=== PATIENT | male | born 1985 | race Hispanic/Latino ===

== ENCOUNTER 2017-12-29 17:36 | Inpatient (IN) | payer MEDICAID ==
--- NOTE | 2017-12-29 18:34 | C.PDOC ---
History Of Present Illness 32 y/o male presents to ED with c/o sob "for few weeks" Patient states he had prior case of pericarditis and was treated, reports recent chest xray showed left side pleural effusion and admits to subjective fever. Patient denies chest pain, palpitations, nausea, vomiting, leg swelling or any other complaints at this time. Time Seen by Provider: 12/29/17 18:31 Chief Complaint (Nursing): Shortness Of Breath History Per: Patient History/Exam Limitations: no limitations Onset/Duration Of Symptoms: Days Current Symptoms Are (Timing): Still Present Past Medical History Reviewed: Historical Data, Nursing Documentation, Vital Signs Vital Signs: Last Vital Signs Temp 98.3 F 12/29/17 20:00 Pulse 118 H 12/29/17 21:08 Resp 18 12/29/17 21:08 BP 122/78 12/29/17 21:08 Pulse Ox 97 12/29/17 21:08 - Medical History PMH: Pericarditis Surgical History: No Surg Hx Family History: States: No Known Family Hx - Social History Hx Alcohol Use: Yes Hx Substance Use: No - Immunization History Hx Tetanus Toxoid Vaccination: Yes Hx Influenza Vaccination: Yes Hx Pneumococcal Vaccination: No Review Of Systems Constitutional: Negative for: Fever, Chills Cardiovascular: Negative for: Chest Pain Respiratory: Positive for: Shortness of Breath. Negative for: Cough Gastrointestinal: Negative for: Nausea, Vomiting Skin: Negative for: Rash Neurological: Negative for: Weakness, Numbness Physical Exam - Physical Exam Appears: Non-toxic, No Acute Distress Skin: Warm, Dry, No Rash Head: Atraumatic, Normacephalic Eye(s): bilateral: Normal Inspection Oral Mucosa: Moist Neck: Normal ROM, Supple Cardiovascular: Rhythm Regular Respiratory: Rales (left base), No Rhonchi, No Wheezing Gastrointestinal/Abdominal: Soft, No Tenderness, No Guarding, No Rebound Extremity: No Pedal Edema, Capillary Refill (<2 seconds) Neurological/Psych: Oriented x3, Normal Speech, Normal Cognition ED Course And Treatment - Laboratory Results Result Diagrams: 12/29/17 18:40 12/29/17 18:40 ECG: Interpreted By Me, Viewed By Me ECG Rhythm: Sinus Tachycardia ECG Interpretation: Normal Interpretation Of ECG: Nonspecific ST/T wave changes. Rate From EC O2 Sat by Pulse Oximetry: 98 (RA) Pulse Ox Interpretation: Normal Medical Decision Making Medical Decision Making: ro pleural effusion/pna/pericarditis/pe-labs imaging pendign noted wbc, cxr shows b/l pleural effusion with b/l patchy infiltrate. dimer elevated. ct shows no pe. case discussed with dr gilmore, covering dr wolfe. 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 accepted by dr gunderson. Disposition - Disposition Disposition: HOSPITALIZED Disposition Time: 22:40 Condition: FAIR Forms: [facility] (Nepali) - Clinical Impression Clinical Impression: Pleural effusion, Pneumonia - Scribe Statement The provider has reviewed the documentation as recorded by the Scribe Elissa Benavides All medical record entries made by the Scribe were at my direction and personally dictated by me. I have reviewed the chart and agree that the record accurately reflects my personal performance of the history, physical exam, medical decision making, and the department course for this patient. I have also personally directed, reviewed, and agree with the discharge instructions and disposition. Decision To Admit - Pt Status Changed To: Hospital Disposition Of: Inpatient - Admit Certification Admit to Inpatient:: After my assessment, the patient will require hospitalization for at least two midnights. This is because of the severity of symptoms shown, intensity of services needed, and/or the medical risk in this patient being treated as an outpatient. - InPatient: Physician Admission Certification: I certify that this patient requires 2 or more midnights of care for the following reason:: failure of outpt - . Bed Request Type: Telemetry Admitting Physician: Adonis Gunderson Jr. Patient Diagnosis: Pleural effusion, Pneumonia
[2017-12-29 18:46] LABS: BASO # 0.1 K/uL (0.0-0.2); BASO % 0.5 % (0.0-2.0); EOS % 0.2 % (0.0-4.0); HEMOGLOBIN 12.5 g/dL (12.0-18.0); LYMPH # 1.8 K/uL (1.0-4.3); LYMPH % 13.8 % (20.0-40.0); MEAN CELL VOLUME 87.9 fL (80.0-94.0); MEAN CORPUSCULAR HGB CONC 34.1 g/dL (33.0-37.0); MONO # 0.9 K/uL (0.0-0.8); MONO % 6.8 % (0.0-10.0); NEUT # 10.1 K/uL (1.8-7.0); NEUT % 78.7 % (50.0-75.0); RBC 4.17 Mil/uL (4.40-5.90); RED CELL DISTRIBUTION WIDTH 13.9 % (11.5-14.5); WHITE BLOOD COUNT 12.8 K/uL (4.8-10.8)
[2017-12-29 18:54] LABS: INR 1.4; PROTHROMBIN TIME 15.4 SECONDS (9.7-12.2)
[2017-12-29 19:03] LABS: ALB/GLOB RATIO 1.1 (1.0-2.1); ALT/SGPT 86 U/L (21-72); AST/SGOT 40 U/L (17-59); BLOOD UREA NITROGEN 13 mg/dL (9-20); CALCIUM 8.9 mg/dl (8.6-10.4); GFR AFRICAN-AMERICAN > 60; GFR NON-AFRICAN AMERICAN > 60
[2017-12-29 19:15] LABS: B-TYPE NATRIURETIC PEPTIDE 430 pg/mL (0-450)
[2017-12-29] MEDS ORDERED: Azithromycin 500 MG in Sodium Chloride 0.9% 250 ML IVPB STA (19:30)
[2017-12-29 19:48] LABS: URINE BILIRUBIN NEGATIVE (NEGATIVE); URINE BLOOD 1+ (NEGATIVE); URINE CLARITY Clear (Clear); URINE COLOR Straw (YELLOW); URINE GLUCOSE (UA) NORMAL (Normal); URINE LEUKOCYTE ESTERASE NEG Leu/uL (Negative); URINE PROTEIN NEGATIVE (NEGATIVE); URINE UROBILINOGEN NORMAL mg/dL (0.2-1.0)
[2017-12-29] MEDS ORDERED: Iodixanol 320 MG/ML 100 ML BOTTLE IV ONE (20:41)
--- NOTE | 2017-12-29 22:42 | CP.PCM.HP ---
History of Present Illness - History of Present Illness History of Present Illness: Medicine Note for Dr. Edwards's Service CC: chest pain, worse with inspiration HPI: This is a 32 year old male who was recently diagnosed with Pericarditis 4 weeks ago. Patient reports that 4 weeks ago he started to have daily fevers with Tmax 103F, chest pain, tightness, pressure that was intermittent, worse with inspiration and was positional, worse when laying down flat, better if upright and leaned forward. He followed up with his PMD and he referred him to see Dr. Ho. Patient had workup done with Dr. Ho who diagnosed him with Pericarditis; started him on daily NSAIDs and Colchine. Patient was also seen by Dr. Hernandez, patient reports all studies were negative. Denied any recent travelling or sick contacts. Admitted to having Scarlet Fever as a child , up to date with all immunizations. Patient reports he was compliant with his medications, taking them daily as instructed. Patient reports 2 days ago he started to have fevers, Tmax 102F, associated with chills, nonproductive cough, nausea, and chest pain with deep inspiration. Patient saw Dr. Ho who instructed the patient come to the ED. Denied shortness of breath, abdominal pain, v/d/c, or urinary symptoms. PMHx: Pericarditis PSHx: Denied Meds: Aleve, Colchine, and Protonix All: NKDA SHx: Denied any tobacco or illicit drug use, drinks 1-2 beers every couple of months FHx: Denied any history of cardiac issues, CVAs, or malignancies Cardio: Dr. Ho Present on Admission - Present on Admission Any Indicators Present on Admission: No Past Patient History - Past Social History Smoking Status: Never Smoked - PSYCHIATRIC Hx Substance Use: No - SURGICAL HISTORY Hx Surgeries: No - ANESTHESIA Hx Anesthesia: No Meds Allergies/Adverse Reactions: Allergies Allergy/AdvReac Type Severity Reaction Status Date / Time No Known Allergies Allergy Verified 12/29/17 17:44 Physical Exam - Constitutional Appears: No Acute Distress - Head Exam Head Exam: NORMAL INSPECTION, NORMOCEPHALIC - Eye Exam Eye Exam: EOMI, Normal appearance, PERRL. absent: Nystagmus, Scleral icterus Pupil Exam: NORMAL ACCOMODATION - ENT Exam ENT Exam: Mucous Membranes Moist, Normal Exam - Neck Exam Neck exam: Positive for: Normal Inspection. Negative for: Lymphadenopathy, Tenderness, Thyromegaly - Respiratory Exam Respiratory Exam: Clear to Auscultation Bilateral, NORMAL BREATHING PATTERN. absent: Decreased Breath Sounds, Rales, Rhonchi, Wheezes - Cardiovascular Exam Cardiovascular Exam: Tachycardia. absent: Diastolic murmur, Irregular Rhythm, Systolic Murmur Additional comments: pain is not reproducible on palpation, no distant heart sounds noted, no pericardial rub noted - GI/Abdominal Exam GI & Abdominal Exam: Normal Bowel Sounds, Soft. absent: Distended, Tenderness - Rectal Exam Rectal Exam: Deferred - Extremities Exam Extremities exam: Positive for: normal inspection, pedal pulses present. Negative for: pedal edema, tenderness - Back Exam Back exam: NORMAL INSPECTION. absent: CVA tenderness (L), CVA tenderness (R), muscle spasm, paraspinal tenderness, rash noted - Neurological Exam Neurological exam: Alert, CN II-XII Intact, Oriented x3 - Psychiatric Exam Psychiatric exam: Normal Affect, Normal Mood - Skin Skin Exam: Dry, Intact, Normal Color, Warm Results - Vital Signs Recent Vital Signs: Last Vital Signs Temp 98.3 F 12/29/17 20:00 Pulse 118 H 12/29/17 21:08 Resp 18 12/29/17 21:08 BP 122/78 12/29/17 21:08 Pulse Ox 98 12/29/17 22:41 - Labs Result Diagrams: 12/29/17 18:40 12/29/17 18:40 Labs: Laboratory Results - last 24 hr 12/29/17 12/29/17 12/29/17 18:40 18:40 18:40 WBC 12.8 H RBC 4.17 L Hgb 12.5 Hct 36.7 MCV 87.9 MCH 30.0 MCHC 34.1 RDW 13.9 Plt Count 273 MPV 10.0 Neut % (Auto) 78.7 H Lymph % (Auto) 13.8 L [place] % (Auto) 6.8 Eos % (Auto) 0.2 Baso % (Auto) 0.5 Neut # (Auto) 10.1 H Lymph # (Auto) 1.8 [place] # (Auto) 0.9 H Eos # (Auto) 0.0 Baso # (Auto) 0.1 PT 15.4 H INR 1.4 APTT 29 D-Dimer, Quantitative Sodium 141 Potassium 4.0 Chloride 98 Carbon Dioxide 27 Anion Gap 20 BUN 13 Creatinine 0.9 Est GFR ( Amer) > 60 Est GFR (Non-Af Amer) > 60 Random Glucose 116 H Calcium 8.9 Total Bilirubin 0.7 AST 40 ALT 86 H Alkaline Phosphatase 127 H Troponin I < 0.0120 NT-Pro-B Natriuret Pep 430 Total Protein 7.6 Albumin 4.0 Globulin 3.6 Albumin/Globulin Ratio 1.1 Urine Color Urine Clarity Urine pH Ur Specific [place] Urine Protein Urine Glucose (UA) Urine Ketones Urine Blood Urine Nitrate Urine Bilirubin Urine Urobilinogen Ur Leukocyte Esterase Urine WBC (Auto) Urine RBC (Auto) 12/29/17 12/29/17 19:33 19:50 WBC RBC Hgb Hct MCV MCH MCHC RDW Plt Count MPV Neut % (Auto) Lymph % (Auto) [place] % (Auto) Eos % (Auto) Baso % (Auto) Neut # (Auto) Lymph # (Auto) [place] # (Auto) Eos # (Auto) Baso # (Auto) PT INR APTT D-Dimer, Quantitative 1859 H Sodium Potassium Chloride Carbon Dioxide Anion Gap BUN Creatinine Est GFR ( Amer) Est GFR (Non-Af Amer) Random Glucose Calcium Total Bilirubin AST ALT Alkaline Phosphatase Troponin I NT-Pro-B Natriuret Pep Total Protein Albumin Globulin Albumin/Globulin Ratio Urine Color Straw Urine Clarity Clear Urine pH 6.0 Ur Specific [place] 1.005 Urine Protein Negative Urine Glucose (UA) Normal Urine Ketones Negative Urine Blood 1+ H Urine Nitrate Negative Urine Bilirubin Negative Urine Urobilinogen Normal Ur Leukocyte Esterase Neg Urine WBC (Auto) < 1 Urine RBC (Auto) 2 Assessment & Plan - Assessment and Plan (Free Text) Plan: Pericarditis Cardiology Consulted - Dr. Ho/ Dr. Griffith - help appreciated - Recently diagnosed x 3-4 weeks, treated outpatient with Dr. Ho; Seen by ID, Dr. Hernandez - workup negative - EKG: sinus tachycardia at 105 - ESR, CRP elevated - Will retrieve records from Dr. Ho/ Dr. Griffith's office - F/U ECHO - Started Motrin Q8H, colchicine daily Bilateral Lower Lobe Pleural Effusions Questionable patchy infiltrates? - CXR: Noted bilateral infiltrates, bilateral effusion - Elevated D- dimer, CTA - negative for PE; noted for mild bilateral pleural effusions, with atelectasis/ infiltrates? Few prominent mediastinal lymph nodes largest 1 x 2.2cm. Biapical pleural thickening/ scarring. No significant pericardial effusions. - F/U procal - if low will DC ABX - Started Rocephin, Azithro, Florastor Transaminitis - Likely 2/2 to tylenol use - Refrain from hepatoxic agents - Will continue to monitor - F/U Hepatitis panel Prophylactic Measures - GI PPX: Protonix, Florastor - DVT PPX: SCDs, Heparin Q8H DW Dr. Edwards, Esha Santos DO, PGY-2
[2017-12-29 23:50] LABS: FREE T4 1.99 ng/dL (0.78-2.19)
[2017-12-30 00:04] LABS: HEPATITIS B SURFACE AG Negative (NEGATIVE)
[2017-12-30 00:10] LABS: HEPATITIS A IGM NEGATIVE (NEGATIVE); HEPATITIS B CORE AB NEGATIVE (NEGATIVE)
[2017-12-30 00:22] LABS: HEPATITIS C ANTIBODY NEGATIVE (NEGATIVE)
[2017-12-30 03:43] LABS: CK-MB 0.25 ng/mL (0.0-3.38)
--- NOTE | 2017-12-30 07:01 | CP.PCM.PN ---
Subjective - Date & Time of Evaluation Date of Evaluation: 12/30/17 Time of Evaluation: 07:50 - Subjective Subjective: PGY [address] Edwards. Patient seen and examined at bedside. Patient had no overnight events. Patient currently states his chest pain is much improved and deep inspirations cause minimal discomfort in chest. Patient denies constipation, abdominal pain, trouble voiding. Patient admits to cyclical fevers/chills. Objective - Vital Signs/Intake and Output Vital Signs (last 24 hours): Temp Pulse Resp BP Pulse Ox 97.5 F L 90 20 104/71 97 12/30/17 06:29 12/30/17 06:29 12/30/17 04:25 12/30/17 06:29 12/30/17 04:25 - Medications Medications: Current Medications Colchicine (Colocrys) 0.6 mg PO DAILY [facility] Heparin Sodium (Porcine) (Heparin) 5,000 units SC Q8 [facility] Last Admin: 12/30/17 06:28 Dose: Not Given Ceftriaxone Sodium 1 gm/ (Sodium Chloride) 100 mls @ 100 mls/hr IVPB DAILY [facility] PRN Reason: Protocol Azithromycin (Zithromax 500mg In Ns Addvantage) 500 mg in 250 mls @ 167 mls/hr IVPB Q24H [facility] PRN Reason: Protocol Ibuprofen (Motrin Tab) 800 mg PO Q8H [facility] Last Admin: 12/30/17 03:24 Dose: 800 mg [id number] Ethyl Esters (Lovaza) 1 gm PO BID [facility] Ondansetron HCl (Zofran Inj) 4 mg IVP Q6H PRN PRN Reason: Nausea/Vomiting Pantoprazole Sodium (Protonix Ec Tab) 20 mg PO DAILY [facility] Pneumococcal Polyvalent Vaccine (Pneumovax 23 Vaccine) 0.5 ml IM .ONCE ONE Stop: 01/02/18 10:01 Saccharomyces Boulardii (Florastor) 250 mg PO Q12 [facility] - Labs Labs: 12/29/17 18:40 12/29/17 18:40 PT 15.4 SECONDS (9.7-12.2) H 12/29/17 18:40 INR 1.4 12/29/17 18:40 APTT 29 SECONDS (21-34) 12/29/17 18:40 - Constitutional Appears: Non-toxic, No Acute Distress - Head Exam Head Exam: ATRAUMATIC, NORMAL INSPECTION, NORMOCEPHALIC - Eye Exam Eye Exam: EOMI, Normal appearance - ENT Exam ENT Exam: Mucous Membranes Moist - Neck Exam Neck Exam: absent: Thyromegaly - Respiratory Exam Respiratory Exam: Clear to Ausculation Bilateral, Rales, NORMAL BREATHING PATTERN. absent: Rhonchi, Wheezes - Cardiovascular Exam Cardiovascular Exam: +S1, +S2. absent: Irregular Rhythm, Murmur - GI/Abdominal Exam GI & Abdominal Exam: Soft, Normal Bowel Sounds. absent: Firm, Guarding, Rigid - Extremities Exam Extremities Exam: Full ROM, Normal Inspection. absent: Calf Tenderness, Pedal Edema - Psychiatric Exam Psychiatric exam: Normal Affect, Normal Mood - Skin Skin Exam: Dry, Intact, Normal Color, Warm Assessment and Plan - Assessment and Plan (Free Text) Assessment: 32 yr male with PMhx of pericarditis and travel to [place] (2013) presents to ED w / chest pain (positional) and difficulty breathing: Pericarditis - Possibly Restrictive - Echo (12/30) - F/u - CT (12/29): No evidence of pulmonary embolism. Small pericardial effusion. Small bilateral pleural effusion with lower lobe compressive atelectasis. - CXR (12/29): Small pleural effusions. Bibasilar airspace disease may represent atelectasis or pneumonia. - EKG: Sinus tachycardia, possible left atrial enlargement, nonspecific T wave abnormality, abnormal ECG - F/u MRI of Chest - F/u Chest decubitis bilateral xray - start Aspirin 325mg Q6, D/C iboprofen - F/u pulmonary recs - Dr. Balbuena - F/u cardio recs - Dr. Ho - ESR, CRP elevated, BNP 430, ROMIx (-) X3 Bilateral Lower Lobe Pleural Effusions Questionable patchy infiltrates? - CXR: Noted bilateral infiltrates, bilateral effusion - Elevated D- dimer, CTA - negative for PE; noted for mild bilateral pleural effusions, with atelectasis/ infiltrates? Few prominent mediastinal lymph nodes largest 1 x 2.2cm. Biapical pleural thickening/ scarring. No significant pericardial effusions. - Started Rocephin, Azithro, Florastor - F/u mycoplasma, legionella Transaminitis - Likely 2/2 to tylenol use - Refrain from hepatoxic agents - Will continue to monitor - hep A, B,C negative Prophylactic Measures - GI PPX: Protonix, Florastor - DVT PPX: SCDs, Heparin Q8H Discussed assessment & plan with Dr. Edwards
[2017-12-30 07:52] LABS: BASO % 0.5 % (0.0-2.0); EOS # 0.1 K/uL (0.0-0.7); EOS % 0.8 % (0.0-4.0); HEMOGLOBIN 11.3 g/dL (12.0-18.0); LYMPH # 1.9 K/uL (1.0-4.3); LYMPH % 19.3 % (20.0-40.0); MEAN CELL VOLUME 89.2 fL (80.0-94.0); MEAN CORPUSCULAR HEMOGLOBIN 30.7 pg (27.0-31.0); MEAN CORPUSCULAR HGB CONC 34.4 g/dL (33.0-37.0); MEAN PLATELET VOLUME 10.3 fL (7.2-11.7); MONO % 9.7 % (0.0-10.0); NEUT # 6.9 K/uL (1.8-7.0); NEUT % 69.7 % (50.0-75.0); RBC 3.69 Mil/uL (4.40-5.90); WHITE BLOOD COUNT 9.9 K/uL (4.8-10.8)
--- NOTE | 2017-12-30 08:15 | RAD ---
Date of service: 12/29/2017 PROCEDURE: CHEST RADIOGRAPH, 1 VIEW HISTORY: chest pain COMPARISON: None available. FINDINGS: LUNGS: The lungs are well inflated. There is bibasilar airspace disease. PLEURA: No pneumothorax. Small pleural effusions. CARDIOVASCULAR: Normal. OSSEOUS STRUCTURES: No significant abnormalities. VISUALIZED UPPER ABDOMEN: Normal. OTHER FINDINGS: None. IMPRESSION: Small pleural effusions. Bibasilar airspace disease may represent atelectasis or pneumonia.
[2017-12-30] MEDS: Saccharomyces Boulardi 250 mg Cap PO SCH ×3 (08:31→22:26)
[2017-12-30 08:46] LABS: ALB/GLOB RATIO 1.1 (1.0-2.1); ALBUMIN 3.5 g/dL (3.5-5.0); ALT/SGPT 76 U/L (21-72); AST/SGOT 42 U/L (17-59); BLOOD UREA NITROGEN 14 mg/dL (9-20); CALCIUM 8.6 mg/dl (8.6-10.4); GFR AFRICAN-AMERICAN > 60; GFR NON-AFRICAN AMERICAN > 60
--- NOTE | 2017-12-30 09:42 | CT ---
Date of service: 12/29/2017 PROCEDURE: CT Chest with contrast (Pulmonary Angiogram) HISTORY: sob elevated dimer COMPARISON: None available. TECHNIQUE: Axial computed tomography images were obtained of the chest in the pulmonary arterial phase of enhancement. Coronal and sagittal reformatted images were created and reviewed. Intravenous contrast dose: 100 mL Visipaque 320 Radiation dose: Total exam DLP = 238.65 mGy-cm. This CT exam was performed using one or more of the following dose reduction techniques: Automated exposure control, adjustment of the mA and/or kV according to patient size, and/or use of iterative reconstruction technique. FINDINGS: PULMONARY ARTERIES: Unremarkable. No pulmonary embolism. AORTA: No acute findings. No thoracic aortic aneurysm. LUNGS: Bilateral lower lobe compressive atelectasis, mild. PLEURAL SPACES: Small bilateral pleural effusion. No pneumothorax. HEART: Normal heart size. Small pericardial effusion. LYMPH NODES: No significant mediastinal or hilar lymphadenopathy. BONES, CHEST WALL: Unremarkable. No fracture or destructive lesion OTHER FINDINGS: Unremarkable. IMPRESSION: No evidence of pulmonary embolism. Small pericardial effusion. Small bilateral pleural effusion with lower lobe compressive atelectasis. The preliminary findings for this examination were reported by [facility] at 10:27 p.m. on 12/29/2017. There is concurrence of this report with the preliminary findings.
--- NOTE | 2017-12-30 10:28 | CP.PCM.CON ---
History of Present Illness - History of Present Illness History of Present Illness: The pt is a 32 year old man with several weeks of fever. pt came to see me and had a small pericardial effusion, no st changes. After a week of nsaids and colchicine, the pericardial effusion was small,er but there were bilateral pleural effusion noted on echo and cxr. pt saw Dr cheatham as an outpatient, and blood cultures were drawn here at , but no record available. W/u for ANBA, RF negative. Pt also had a moderate transaminitis. Pt stopped nsaids, and fever recurred. A biref echo in my offic yesterday demonstrated only a trivial pericardial effusion and normal LV EF and doppler. pt feels better today after antibiotics. ECg shows nsr, no st changes. pt was [id number] to [facility] in the past with pericarditis, a year or two ago, and took only a brief course of nsaids. Review of Systems - Review of Systems All systems: reviewed and no additional remarkable complaints except (cough, and as above) Past Patient History - Past Medical History & Family History Past Medical History?: Yes - Past Social History Smoking Status: Never Smoked - CARDIAC Hx Cardiac Disorders: Yes Other/Comment: Pericarditis - PULMONARY Hx Respiratory Disorders: No - NEUROLOGICAL Hx Neurological Disorder: No - HEENT Hx HEENT Problems: No - RENAL Hx Chronic Kidney Disease: No - ENDOCRINE/METABOLIC Hx Endocrine Disorders: No - HEMATOLOGICAL/ONCOLOGICAL Hx Blood Disorders: No - INTEGUMENTARY Hx Dermatological Problems: No - MUSCULOSKELETAL/RHEUMATOLOGICAL Hx Musculoskeletal Disorders: No Hx Falls: No - GASTROINTESTINAL Hx Gastrointestinal Disorders: No - GENITOURINARY/GYNECOLOGICAL Hx Genitourinary Disorders: No - PSYCHIATRIC Hx Psychophysiologic Disorder: No Hx Substance Use: No - SURGICAL HISTORY Hx Surgeries: No - ANESTHESIA Hx Anesthesia: No Meds Allergies/Adverse Reactions: Allergies Allergy/AdvReac Type Severity Reaction Status Date / Time No Known Allergies Allergy Verified 12/29/17 17:44 - Medications Medications: Current Medications Colchicine (Colocrys) 0.6 mg PO DAILY [facility] Heparin Sodium (Porcine) (Heparin) 5,000 units SC Q8 [facility] Last Admin: 12/30/17 06:28 Dose: Not Given Ceftriaxone Sodium 1 gm/ (Sodium Chloride) 100 mls @ 100 mls/hr IVPB DAILY [facility] PRN Reason: Protocol Azithromycin (Zithromax 500mg In Ns Addvantage) 500 mg in 250 mls @ 167 mls/hr IVPB Q24H [facility] PRN Reason: Protocol Ibuprofen (Motrin Tab) 800 mg PO Q8H [facility] Last Admin: 12/30/17 03:24 Dose: 800 mg Disjx-8-Gvhq Ethyl Esters (Lovaza) 1 gm PO BID [facility] Ondansetron HCl (Zofran Inj) 4 mg IVP Q6H PRN PRN Reason: Nausea/Vomiting Pantoprazole Sodium (Protonix Ec Tab) 20 mg PO DAILY [facility] Pneumococcal Polyvalent Vaccine (Pneumovax 23 Vaccine) 0.5 ml IM .ONCE ONE Stop: 01/02/18 10:01 Saccharomyces Boulardii (Florastor) 250 mg PO Q12 [facility] Last Admin: 12/30/17 08:31 Dose: 250 mg Physical Exam - Constitutional Appears: Well - Head Exam Head Exam: ATRAUMATIC - Eye Exam Eye Exam: EOMI - ENT Exam ENT Exam: Mucous Membranes Moist - Neck Exam Neck exam: Positive for: Full Rom - Respiratory Exam Respiratory Exam: Decreased Breath Sounds - Cardiovascular Exam Cardiovascular Exam: REGULAR RHYTHM - GI/Abdominal Exam GI & Abdominal Exam: Normal Bowel Sounds - Exam External exam: NORMAL EXTERNAL EXAM - Extremities Exam Extremities exam: Positive for: normal inspection - Back Exam Back exam: NORMAL INSPECTION - Neurological Exam Neurological exam: Alert, Normal Gait, Oriented x3, Reflexes Normal - Psychiatric Exam Psychiatric exam: Normal Affect, Normal Mood - Skin Skin Exam: Normal Color Results - Vital Signs Recent Vital Signs: Last Vital Signs Temp 97.8 F 12/30/17 07:20 Pulse 88 12/30/17 08:02 Resp 20 12/30/17 07:20 BP 99/63 L 12/30/17 07:20 Pulse Ox 97 12/30/17 07:20 - Labs Result Diagrams: 12/30/17 07:48 12/30/17 07:48 Labs: Laboratory Results - last 24 hr 12/29/17 12/29/17 12/29/17 18:40 18:40 18:40 WBC 12.8 H RBC 4.17 L Hgb 12.5 Hct 36.7 MCV 87.9 MCH 30.0 MCHC 34.1 RDW 13.9 Plt Count 273 MPV 10.0 Neut % (Auto) 78.7 H Lymph % (Auto) 13.8 L Glenn % (Auto) 6.8 Eos % (Auto) 0.2 Baso % (Auto) 0.5 Neut # (Auto) 10.1 H Lymph # (Auto) 1.8 Glenn # (Auto) 0.9 H Eos # (Auto) 0.0 Baso # (Auto) 0.1 ESR PT 15.4 H INR 1.4 APTT 29 D-Dimer, Quantitative Sodium 141 Potassium 4.0 Chloride 98 Carbon Dioxide 27 Anion Gap 20 BUN 13 Creatinine 0.9 Est GFR ( Amer) > 60 Est GFR (Non-Af Amer) > 60 Random Glucose 116 H Hemoglobin A1c Calcium 8.9 Phosphorus Magnesium Total Bilirubin 0.7 AST 40 ALT 86 H Alkaline Phosphatase 127 H Total Creatine Kinase CK-MB (Mass) Troponin I < 0.0120 C-React Prot High Sens NT-Pro-B Natriuret Pep 430 Total Protein 7.6 Albumin 4.0 Globulin 3.6 Albumin/Globulin Ratio 1.1 Triglycerides Cholesterol LDL Cholesterol Direct HDL Cholesterol Free T4 TSH 3rd Generation Urine Color Urine Clarity Urine pH Ur Specific [place] Urine Protein Urine Glucose (UA) Urine Ketones Urine Blood Urine Nitrate Urine Bilirubin Urine Urobilinogen Ur Leukocyte Esterase Urine WBC (Auto) Urine RBC (Auto) Hepatitis A IgM Ab Hep Bs Antigen Hep B Core IgM Ab Hepatitis C Antibody 12/29/17 12/29/17 12/29/17 19:33 19:50 23:11 WBC RBC Hgb Hct MCV MCH MCHC RDW Plt Count MPV Neut % (Auto) Lymph % (Auto) Glenn % (Auto) Eos % (Auto) Baso % (Auto) Neut # (Auto) Lymph # (Auto) Glenn # (Auto) Eos # (Auto) Baso # (Auto) ESR PT INR APTT D-Dimer, Quantitative 1859 H Sodium Potassium Chloride Carbon Dioxide Anion Gap BUN Creatinine Est GFR ( Amer) Est GFR (Non-Af Amer) Random Glucose Hemoglobin A1c 5.5 Calcium Phosphorus Magnesium Total Bilirubin AST ALT Alkaline Phosphatase Total Creatine Kinase CK-MB (Mass) Troponin I C-React Prot High Sens NT-Pro-B Natriuret Pep Total Protein Albumin Globulin Albumin/Globulin Ratio Triglycerides Cholesterol LDL Cholesterol Direct HDL Cholesterol Free T4 TSH 3rd Generation Urine Color Straw Urine Clarity Clear Urine pH 6.0 Ur Specific [place] 1.005 Urine Protein Negative Urine Glucose (UA) Normal Urine Ketones Negative Urine Blood 1+ H Urine Nitrate Negative Urine Bilirubin Negative Urine Urobilinogen Normal Ur Leukocyte Esterase Neg Urine WBC (Auto) < 1 Urine RBC (Auto) 2 Hepatitis A IgM Ab Hep Bs Antigen Hep B Core IgM Ab Hepatitis C Antibody 12/29/17 12/29/17 12/29/17 23:11 23:11 23:11 WBC RBC Hgb Hct MCV MCH MCHC RDW Plt Count MPV Neut % (Auto) Lymph % (Auto) Glenn % (Auto) Eos % (Auto) Baso % (Auto) Neut # (Auto) Lymph # (Auto) Glenn # (Auto) Eos # (Auto) Baso # (Auto) ESR 72 H PT INR APTT D-Dimer, Quantitative Sodium Potassium Chloride Carbon Dioxide Anion Gap BUN Creatinine Est GFR ( Amer) Est GFR (Non-Af Amer) Random Glucose Hemoglobin A1c Calcium Phosphorus Magnesium Total Bilirubin AST ALT Alkaline Phosphatase Total Creatine Kinase CK-MB (Mass) Troponin I C-React Prot High Sens > 15.00 H NT-Pro-B Natriuret Pep Total Protein Albumin Globulin Albumin/Globulin Ratio Triglycerides Cholesterol LDL Cholesterol Direct HDL Cholesterol Free T4 1.99 TSH 3rd Generation Urine Color Urine Clarity Urine pH Ur Specific [place] Urine Protein Urine Glucose (UA) Urine Ketones Urine Blood Urine Nitrate Urine Bilirubin Urine Urobilinogen Ur Leukocyte Esterase Urine WBC (Auto) Urine RBC (Auto) Hepatitis A IgM Ab Negative Hep Bs Antigen Negative Hep B Core IgM Ab Negative Hepatitis C Antibody Negative 12/30/17 12/30/17 12/30/17 00:11 03:13 07:48 WBC 9.9 RBC 3.69 L Hgb 11.3 L Hct 32.9 L MCV 89.2 MCH 30.7 MCHC 34.4 RDW 14.0 Plt Count 271 MPV 10.3 Neut % (Auto) 69.7 Lymph % (Auto) 19.3 L Glenn % (Auto) 9.7 Eos % (Auto) 0.8 Baso % (Auto) 0.5 Neut # (Auto) 6.9 Lymph # (Auto) 1.9 Glenn # (Auto) 1.0 H Eos # (Auto) 0.1 Baso # (Auto) 0.0 ESR PT INR APTT D-Dimer, Quantitative Sodium Potassium Chloride Carbon Dioxide Anion Gap BUN Creatinine Est GFR ( Amer) Est GFR (Non-Af Amer) Random Glucose Hemoglobin A1c Calcium Phosphorus Magnesium Total Bilirubin AST ALT Alkaline Phosphatase Total Creatine Kinase 52 L CK-MB (Mass) 0.25 Troponin I < 0.0120 C-React Prot High Sens NT-Pro-B Natriuret Pep Total Protein Albumin Globulin Albumin/Globulin Ratio Triglycerides 103 Cholesterol 113 LDL Cholesterol Direct 50 HDL Cholesterol 20 L Free T4 TSH 3rd Generation 1.57 Urine Color Urine Clarity Urine pH Ur Specific [place] Urine Protein Urine Glucose (UA) Urine Ketones Urine Blood Urine Nitrate Urine Bilirubin Urine Urobilinogen Ur Leukocyte Esterase Urine WBC (Auto) Urine RBC (Auto) Hepatitis A IgM Ab Hep Bs Antigen Hep B Core IgM Ab Hepatitis C Antibody 12/30/17 07:48 WBC RBC Hgb Hct MCV MCH MCHC RDW Plt Count MPV Neut % (Auto) Lymph % (Auto) Glenn % (Auto) Eos % (Auto) Baso % (Auto) Neut # (Auto) Lymph # (Auto) Glenn # (Auto) Eos # (Auto) Baso # (Auto) ESR PT INR APTT D-Dimer, Quantitative Sodium 141 Potassium 4.2 Chloride 103 Carbon Dioxide 28 Anion Gap 14 BUN 14 Creatinine 0.9 Est GFR ( Amer) > 60 Est GFR (Non-Af Amer) > 60 Random Glucose 88 Hemoglobin A1c Calcium 8.6 Phosphorus 3.3 Magnesium 2.3 Total Bilirubin 0.5 AST 42 ALT 76 H Alkaline Phosphatase 115 Total Creatine Kinase CK-MB (Mass) Troponin I C-React Prot High Sens NT-Pro-B Natriuret Pep Total Protein 6.5 Albumin 3.5 Globulin 3.1 Albumin/Globulin Ratio 1.1 Triglycerides Cholesterol LDL Cholesterol Direct HDL Cholesterol Free T4 TSH 3rd Generation Urine Color Urine Clarity Urine pH Ur Specific [place] Urine Protein Urine Glucose (UA) Urine Ketones Urine Blood Urine Nitrate Urine Bilirubin Urine Urobilinogen Ur Leukocyte Esterase Urine WBC (Auto) Urine RBC (Auto) Hepatitis A IgM Ab Hep Bs Antigen Hep B Core IgM Ab Hepatitis C Antibody - EKG Data EKG Interpreted by: Myself EKG shows normal: Sinus rhythm Rate: Normal Assessment & Plan - Assessment and Plan (Free Text) Assessment: 1. Trivial pericardial effusion. May stop colchicine 2. Bilateral pleural effusions, atelectasis, FUO. Recommend ID and Pulmonary Eval.
[2017-12-30] MEDS: Omega-3-Acid Ethyl Esters 1 GM Cap PO SCH ×2 (10:56→17:54)
[2017-12-30] MEDS: Pantoprazole 20 mg EC Tab PO SCH (10:56)
[2017-12-30] MEDS ORDERED: Azithromycin 500mg/250ML NS 500 MG/250 ML BAG IVPB SCH (12:00)
--- NOTE | 2017-12-30 12:03 | CARD ---
APPROVED REPORT Date of service: 12/29/2017 EKG Measurement Heart [id number] MD [id number] <Conclusion> Sinus tachycardia Possible Left atrial enlargement Nonspecific T wave abnormality Abnormal ECG
--- NOTE | 2017-12-30 12:03 | CARD ---
APPROVED REPORT Date of service: 12/30/2017 EKG Measurement Heart [id number] <Conclusion> Normal sinus rhythm Nonspecific T wave abnormality Abnormal ECG
[2017-12-30 12:13] LABS: CK-MB 0.26 ng/mL (0.0-3.38)
--- NOTE | 2017-12-30 12:28 | CARD ---
APPROVED REPORT Date of service: 12/30/2017 EKG Measurement Heart [id number] <Conclusion> Normal sinus rhythm T wave abnormality, consider anterior ischemia Abnormal ECG
[2017-12-31 07:18] LABS: BASO % 0.6 % (0.0-2.0); EOS # 0.2 K/uL (0.0-0.7); EOS % 2.7 % (0.0-4.0); HEMOGLOBIN 12.1 g/dL (12.0-18.0); LYMPH # 1.9 K/uL (1.0-4.3); LYMPH % 25.5 % (20.0-40.0); MEAN CELL VOLUME 88.9 fL (80.0-94.0); MEAN CORPUSCULAR HEMOGLOBIN 30.1 pg (27.0-31.0); MEAN CORPUSCULAR HGB CONC 33.9 g/dL (33.0-37.0); MEAN PLATELET VOLUME 9.7 fL (7.2-11.7); MONO # 0.7 K/uL (0.0-0.8); MONO % 8.9 % (0.0-10.0); NEUT # 4.7 K/uL (1.8-7.0); NEUT % 62.3 % (50.0-75.0); NRBC % 0.1 % (0.0-2.0); RBC 4.01 Mil/uL (4.40-5.90); RED CELL DISTRIBUTION WIDTH 13.9 % (11.5-14.5); WHITE BLOOD COUNT 7.6 K/uL (4.8-10.8)
[2017-12-31 08:21] LABS: ALBUMIN 3.6 g/dL (3.5-5.0); ALT/SGPT 88 U/L (21-72); AST/SGOT 55 U/L (17-59); BLOOD UREA NITROGEN 11 mg/dL (9-20); CALCIUM 9.1 mg/dl (8.6-10.4); GFR AFRICAN-AMERICAN > 60; GFR NON-AFRICAN AMERICAN > 60
[2017-12-31 09:11] LABS: LEGIONELLA AG URINE NEGATIVE (NEGATIVE)
[2017-12-31] MEDS: Omega-3-Acid Ethyl Esters 1 GM Cap PO SCH ×2 (09:19→17:15)
[2017-12-31] MEDS: Pantoprazole 20 mg EC Tab PO SCH (09:19)
[2017-12-31] MEDS: Saccharomyces Boulardi 250 mg Cap PO SCH ×2 (09:19→21:27)
--- NOTE | 2017-12-31 09:47 | CP.PCM.CON ---
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 Patient was treated with nonsteroidal anti-inflammatory drug and colchicine. Patient was also seen by infectious disease and states all workup was negative. Patient also complaining off slight cough but denies shortness of breath, denies weight loss, denies night sweats. PMHx: Pericarditis PSHx: Denied Meds: Aleve, Colchine, and Protonix All: NKDA SHx: Denied any tobacco or illicit drug use, drinks 1-2 beers every couple of months FHx: Denied any history of cardiac issues, CVAs, or malignancies Review of Systems - Review of Systems All systems: reviewed and no additional remarkable complaints except (cough and chest pain) Past Patient History - Past Medical History & Family History Past Medical History?: Yes - Past Social History Smoking Status: Never Smoked - CARDIAC Hx Cardiac Disorders: Yes Other/Comment: Pericarditis - PULMONARY Hx Respiratory Disorders: No - NEUROLOGICAL Hx Neurological Disorder: No - HEENT Hx HEENT Problems: No - RENAL Hx Chronic Kidney Disease: No - ENDOCRINE/METABOLIC Hx Endocrine Disorders: No - HEMATOLOGICAL/ONCOLOGICAL Hx Blood Disorders: No - INTEGUMENTARY Hx Dermatological Problems: No - MUSCULOSKELETAL/RHEUMATOLOGICAL Hx Musculoskeletal Disorders: No Hx Falls: No - GASTROINTESTINAL Hx Gastrointestinal Disorders: No - GENITOURINARY/GYNECOLOGICAL Hx Genitourinary Disorders: No - PSYCHIATRIC Hx Psychophysiologic Disorder: No Hx Substance Use: No - SURGICAL HISTORY Hx Surgeries: No - ANESTHESIA Hx Anesthesia: No Meds Allergies/Adverse Reactions: Allergies Allergy/AdvReac Type Severity Reaction Status Date / Time No Known Allergies Allergy Verified 12/29/17 17:44 - Medications Medications: Current Medications Aspirin (Aspirin) 325 mg PO Q6 [facility] Last Admin: 12/31/17 06:21 Dose: 325 mg Heparin Sodium (Porcine) (Heparin) 5,000 units SC Q8 [facility] Last Admin: 12/31/17 06:21 Dose: Not Given Ceftriaxone Sodium 1 gm/ (Sodium Chloride) 100 mls @ 100 mls/hr IVPB DAILY [facility] PRN Reason: Protocol Last Admin: 12/31/17 09:19 Dose: 100 mls/hr Azithromycin (Zithromax 500mg In Ns Addvantage) 500 mg in 250 mls @ 167 mls/hr IVPB Q24H [facility] PRN Reason: Protocol Last Admin: 12/30/17 11:10 Dose: 167 mls/hr Spwlk-9-Inor Ethyl Esters (Lovaza) 1 gm PO BID [facility] Last Admin: 12/31/17 09:19 Dose: 1 gm Ondansetron HCl (Zofran Inj) 4 mg IVP Q6H PRN PRN Reason: Nausea/Vomiting Pantoprazole Sodium (Protonix Ec Tab) 20 mg PO DAILY [facility] Last Admin: 12/31/17 09:19 Dose: 20 mg Pneumococcal Polyvalent Vaccine (Pneumovax 23 Vaccine) 0.5 ml IM .ONCE ONE Stop: 01/02/18 10:01 Saccharomyces Boulardii (Florastor) 250 mg PO Q12 [facility] Last Admin: 12/31/17 09:19 Dose: 250 mg Physical Exam - Head Exam Head Exam: ATRAUMATIC, NORMOCEPHALIC - ENT Exam ENT Exam: Mucous Membranes Moist - Neck Exam Neck exam: Positive for: Normal Inspection - Respiratory Exam Respiratory Exam: Clear to Auscultation Bilateral - Cardiovascular Exam Cardiovascular Exam: REGULAR RHYTHM - GI/Abdominal Exam GI & Abdominal Exam: Normal Bowel Sounds, Soft - Extremities Exam Extremities exam: Positive for: normal inspection Results - Vital Signs Recent Vital Signs: Last Vital Signs Temp 98.1 F 12/31/17 07:20 Pulse 98 H 12/31/17 07:20 Resp 20 12/31/17 07:20 BP 110/70 12/31/17 07:20 Pulse Ox 97 12/31/17 07:20 - Labs Result Diagrams: 12/31/17 06:55 12/31/17 06:55 Labs: Laboratory Results - last 24 hr 12/29/17 12/30/17 12/30/17 23:45 11:37 11:43 WBC RBC Hgb Hct MCV MCH MCHC RDW Plt Count MPV Neut % (Auto) Lymph % (Auto) Bartholomew % (Auto) Eos % (Auto) Baso % (Auto) Neut # (Auto) Lymph # (Auto) Bartholomew # (Auto) Eos # (Auto) Baso # (Auto) Sodium Potassium Chloride Carbon Dioxide Anion Gap BUN Creatinine Est GFR ( Amer) Est GFR (Non-Af Amer) Random Glucose Calcium Phosphorus Magnesium Total Bilirubin AST ALT Alkaline Phosphatase Total Creatine Kinase 53 L CK-MB (Mass) 0.26 Troponin I < 0.0120 Total Protein Albumin Globulin Albumin/Globulin Ratio Procalcitonin 0.19 Rheumatoid Arth Interp Negative Ur L.pneumophila Ag 12/31/17 12/31/17 12/31/17 01:16 06:55 06:55 WBC 7.6 RBC 4.01 L Hgb 12.1 Hct 35.7 MCV 88.9 MCH 30.1 MCHC 33.9 RDW 13.9 Plt Count 307 MPV 9.7 Neut % (Auto) 62.3 Lymph % (Auto) 25.5 Bartholomew % (Auto) 8.9 Eos % (Auto) 2.7 Baso % (Auto) 0.6 Neut # (Auto) 4.7 Lymph # (Auto) 1.9 Bartholomew # (Auto) 0.7 Eos # (Auto) 0.2 Baso # (Auto) 0.0 Sodium 142 Potassium 4.4 Chloride 104 Carbon Dioxide 26 Anion Gap 17 BUN 11 Creatinine 0.8 Est GFR ( Amer) > 60 Est GFR (Non-Af Amer) > 60 Random Glucose 94 Calcium 9.1 Phosphorus 4.7 H Magnesium 2.2 Total Bilirubin 0.4 AST 55 ALT 88 H Alkaline Phosphatase 141 H D Total Creatine Kinase CK-MB (Mass) Troponin I Total Protein 7.2 Albumin 3.6 Globulin 3.6 Albumin/Globulin Ratio 1.0 Procalcitonin Rheumatoid Arth Interp Ur L.pneumophila Ag Negative Assessment & Plan (1) Pleural effusion Assessment and Plan: pleural and pericardial effusion/ pericarditis rule out infectious versus inflammatory etiologyy Consider to repeat the NICK, urine drug screen, HIV, Lyme titers, QuantiFERON Gold test Small pleural effusion not amenable to thoracentesis consider Pleural or pericardial biopsy Short course of steroid Status: Acute (2) Pericarditis Status: Acute
[2017-12-31 10:16] LABS: N MENINGITIS ACY/W135 NEGATIVE (NEGATIVE); N MENINGITIS B/ECOLI K1 NEGATIVE (NEGATIVE); STREP PNEUMONIAE NEGATIVE (NEGATIVE); STREPTOCOCCUS B NEGATIVE (NEGATIVE)
[2017-12-31] MEDS: MethylPREDNISolone 40 mg Vial IV SCH ×3 (12:48→23:27)
[2017-12-31] MEDS: Azithromycin 500 MG in Sodium Chloride 0.9% 250 ML IVPB SCH (13:05)
--- NOTE | 2017-12-31 13:41 | RAD ---
Date of service: 12/31/2017 PROCEDURE: Bilateral decubitus views of the chest HISTORY: pleural effusion vs infectious process COMPARISON: Comparison is made with the previous study dated 11/29/[address] of the chest dated 12/29/2017 TECHNIQUE: Bilateral decubitus views of the chest were obtained. FINDINGS: Again noted are small to moderate bilateral pleural effusions slightly larger on the left. No definite evidence of focal consolidation or infiltrate in the lungs. IMPRESSION: Moderate bilateral pleural effusions.
--- NOTE | 2017-12-31 13:52 | CARD ---
APPROVED REPORT Date of service: 12/30/2017 EXAM: Two-dimensional and M-mode echocardiogram with Doppler and color Doppler. INDICATION Pericarditis Dyspnea Pleural Effusion 2D DIMENSIONS IVSd0.7 (0.7-1.1cm)LVDd4.2 (3.9-5.9cm) PWd0.8 (0.7-1.1cm)LVDs3.0 (2.5-4.0cm) FS (%) 27.0 %LVEF (%)55.0 (>50%) M-Mode DIMENSIONS Left Atrium (MM)3.52 (2.5-4.0cm)IVSd0.89 (0.7-1.1cm) Aortic Root3.08 (2.2-3.7cm)LVDd4.23 (4.0-5.6cm) Aortic Cusp Exc.2.36 (1.5-2.0cm)PWd0.82 (0.7-1.1cm) FS (%) 31 %LVDs2.92 (2.0-3.8cm) LVEF (%)59 (>50%) Mitral Valve MV E Kvihsuir07.4cm/sMV A Itvolvwj63.3cm/sE/A ratio1.8 TDI E/Lateral E'0.0E/Medial E'0.0 Tricuspid Valve TR Peak [id number]/sTR Peak Gr.[id number] <Conclusion> normal size la,lv & ra rv. normal lv wall thickness,wall motion,systolic & diastolic function with lvef of 50-55%. normal aortic,mitral,tv & pv. mild pi,mr & tr with normal pulmonary systolic pressures of 20 mm of hg. small posterior pericardial effusion & large lt pleural effusion seen. normal size aortic root.
--- NOTE | 2017-12-31 15:57 | CP.PCM.PN ---
Subjective - Date & Time of Evaluation Date of Evaluation: 12/31/17 Time of Evaluation: 15:36 - Subjective Subjective: PGY-[address] Edwards's Service. Patient seen and examined at bedside. Per nursing no acute events occurred overnight. Patient reports an improvement in chest pain. He reports it only being a 1/10 in severity today upon exam. He denies any fevers, chills, nausea , vomiting, changes in vision, syncopal episodes, or any other complaints. Objective - Vital Signs/Intake and Output Vital Signs (last 24 hours): Temp Pulse Resp BP Pulse Ox 98.1 F 99 H 20 110/70 97 12/31/17 07:20 12/31/17 07:45 12/31/17 07:20 12/31/17 07:20 12/31/17 07:20 Intake and Output: 12/31/17 12/31/17 06:59 18:59 Intake Total 360 500 Balance 360 500 - Medications Medications: Current Medications Aspirin (Aspirin) 325 mg PO Q6 [facility] Last Admin: 12/31/17 12:48 Dose: 325 mg Heparin Sodium (Porcine) (Heparin) 5,000 units SC Q8 [facility] Last Admin: 12/31/17 13:56 Dose: Not Given Ceftriaxone Sodium 1 gm/ (Sodium Chloride) 100 mls @ 100 mls/hr IVPB DAILY [facility] PRN Reason: Protocol Last Admin: 12/31/17 09:19 Dose: 100 mls/hr Azithromycin 500 mg/ Sodium (Chloride) 250 mls @ 167 mls/hr IVPB Q24H [facility] PRN Reason: Protocol Last Admin: 12/31/17 13:05 Dose: 167 mls/hr Methylprednisolone (Solu-Medrol) 40 mg IV Q6 [facility] Last Admin: 12/31/17 12:48 Dose: 40 mg Yrdko-5-Rbqf Ethyl Esters (Lovaza) 1 gm PO BID [facility] Last Admin: 12/31/17 09:19 Dose: 1 gm Ondansetron HCl (Zofran Inj) 4 mg IVP Q6H PRN PRN Reason: Nausea/Vomiting Pantoprazole Sodium (Protonix Ec Tab) 20 mg PO DAILY [facility] Last Admin: 12/31/17 09:19 Dose: 20 mg Pneumococcal Polyvalent Vaccine (Pneumovax 23 Vaccine) 0.5 ml IM .ONCE ONE Stop: 01/02/18 10:01 Stacy Altamirano (Florastor) 250 mg PO Q12 [facility] Last Admin: 12/31/17 09:19 Dose: 250 mg - Labs Labs: 12/31/17 06:55 12/31/17 06:55 PT 15.4 SECONDS (9.7-12.2) H 12/29/17 18:40 INR 1.4 12/29/17 18:40 APTT 29 SECONDS (21-34) 12/29/17 18:40 - Head Exam Head Exam: ATRAUMATIC, NORMAL INSPECTION, NORMOCEPHALIC - Eye Exam Eye Exam: EOMI, Normal appearance, PERRL Pupil Exam: NORMAL ACCOMODATION, PERRL - ENT Exam ENT Exam: Mucous Membranes Moist, Normal Oropharynx - Neck Exam Neck Exam: Normal Inspection. absent: Lymphadenopathy, Thyromegaly - Respiratory Exam Respiratory Exam: Clear to Ausculation Bilateral, NORMAL BREATHING PATTERN - Cardiovascular Exam Cardiovascular Exam: REGULAR RHYTHM, +S1, +S2 - GI/Abdominal Exam GI & Abdominal Exam: Soft, Normal Bowel Sounds. absent: Hyperactive Bowel Sounds - Extremities Exam Extremities Exam: Full ROM, Normal Inspection - Back Exam Back Exam: NORMAL INSPECTION. absent: CVA tenderness (L), CVA tenderness (R), paraspinal tenderness - Neurological Exam Neurological Exam: Alert, Awake, CN II-XII Intact, Normal Gait, Oriented x3 - Psychiatric Exam Psychiatric exam: Normal Affect, Normal Mood. absent: Depressed - Skin Skin Exam: Dry, Intact, Normal Color Assessment and Plan - Assessment and Plan (Free Text) Assessment: 32 yr male with PMhx of pericarditis and travel to [place] (2013) presents to ED w / chest pain (positional) and difficulty breathing: Plan: Pericarditis - Possibly Restrictive - Echo (12/30) :Normal left atrium, left ventricle, right atrium, right ventricle :EF 50-55% :Mild mitral regurgitation, tricuspid regurgitation :small posterior pericardial effusion :large left pleural effusion - CT (12/29): No evidence of pulmonary embolism. Small pericardial effusion. Small bilateral pleural effusion with lower lobe compressive atelectasis. - CXR (12/29): Small pleural effusions. Bibasilar airspace disease may represent atelectasis or pneumonia. - EKG: Sinus tachycardia, possible left atrial enlargement, nonspecific T wave abnormality, abnormal ECG - Chest decubitis bilateral xray:moderate bilateral pleural effusions. - F/u MRI of Chest - continue Aspirin 325mg Q6 -Pulmonary recs - Dr. Balbuena :Consider repeat NICK, urine drug screen, HIV, Lyme titers, Quantiferon Gold test, small pleural effusion not amenable to thoracentesis :Consider pleural or pericardial biopsy :Short course of steroid - Cardio recs - Dr. Ho :Trivial pericardial effusion. May stop colchicine :Bilateral pleural effusions, atelectasis, FUO. Recommend ID and Pulmonary Eval. - ESR, CRP elevated, BNP 430, ROMIx (-) X3 Bilateral Lower Lobe Pleural Effusions Questionable patchy infiltrates? - CXR: Noted bilateral infiltrates, bilateral effusion - Elevated D- dimer, CTA - negative for PE; noted for mild bilateral pleural effusions, with atelectasis/ infiltrates? Few prominent mediastinal lymph nodes largest 1 x 2.2cm. Biapical pleural thickening/ scarring. No significant pericardial effusions. -H. influenzae Type B Ag: Negative -Urine Legionella pneumonphilia Ag: Negative -Mycoplasma pneumoniae IgM: Negative -N. meningitdis: Negative -Group B strep antigen: Negative -S.pneumoniae antigen: Negative -Azithromycin IV 500MG Q12 -Rocephin 1gm IV Daily -Sarccharomyces 250mg PO Q12 Transaminitis - Likely 2/2 to tylenol use - Refrain from hepatoxic agents - Will continue to monitor - hep A, B,C negative Prophylactic Measures - GI PPX: Protonix, Florastor - DVT PPX: SCDs, Heparin Q8H Will discuss assessment & plan with Dr. Jerry Zarate: Will follow up with Pulmonary for rec's following new results showing moderate pleural effusions bilateral. Ruiz Rubin, PGY-2
[2017-12-31 16:34] LABS: MYCOPLASMA PNEUMONIAE IGM NEGATIVE (NEGATIVE)
[2017-12-31 19:45] LABS: BARBITURATES, UR NEGATIVE (NEGATIVE); BENZODIAZEPINES, UR NEGATIVE (NEGATIVE); OPIATES, UR NEGATIVE (NEGATIVE); PHENCYCLIDINE, UR NEGATIVE (NEGATIVE)
[2018-01-01] MEDS: MethylPREDNISolone 40 mg Vial IV SCH ×4 (06:19→23:39)
[2018-01-01 08:26] LABS: BASO % 0.2 % (0.0-2.0); HEMOGLOBIN 13.1 g/dL (12.0-18.0); LYMPH # 1.1 K/uL (1.0-4.3); LYMPH % 9.7 % (20.0-40.0); MEAN CELL VOLUME 88.9 fL (80.0-94.0); MEAN CORPUSCULAR HEMOGLOBIN 30.2 pg (27.0-31.0); MEAN PLATELET VOLUME 9.6 fL (7.2-11.7); MONO # 0.2 K/uL (0.0-0.8); MONO % 2.1 % (0.0-10.0); NEUT # 9.7 K/uL (1.8-7.0); NRBC % 0.1 % (0.0-2.0); PLATELET COUNT 373 K/uL (130-400); RBC 4.34 Mil/uL (4.40-5.90); RED CELL DISTRIBUTION WIDTH 13.8 % (11.5-14.5)
[2018-01-01 08:37] LABS: ALT/SGPT 113 U/L (21-72); AST/SGOT 56 U/L (17-59); BLOOD UREA NITROGEN 17 mg/dL (9-20); CALCIUM 10.1 mg/dl (8.6-10.4); GFR AFRICAN-AMERICAN > 60; GFR NON-AFRICAN AMERICAN > 60
[2018-01-01] MEDS: Pantoprazole 20 mg EC Tab PO SCH (10:02)
[2018-01-01] MEDS: Saccharomyces Boulardi 250 mg Cap PO SCH ×2 (10:02→21:35)
[2018-01-01] MEDS: Omega-3-Acid Ethyl Esters 1 GM Cap PO SCH ×2 (10:02→17:24)
[2018-01-01 10:40] LABS: LYMPHOCYTE 10 % (20-40); MONOCYTE 2 % (0-10); NEUTROPHIL 88 % (50-75); PLATELET ESTIMATE NORMAL (NORMAL); TOTAL CELLS COUNTED 100
[2018-01-01] MEDS: Azithromycin 500 MG in Sodium Chloride 0.9% 250 ML IVPB SCH (12:55)
--- NOTE | 2018-01-01 14:39 | CP.PCM.PN ---
Subjective - Date & Time of Evaluation Date of Evaluation: 01/01/18 Time of Evaluation: 14:39 - Subjective Subjective: PGY-[address] Edwards's Service. Patient seen and examined at bedside. Per nursing no acute events occurred overnight. Patient reports an improvement in chest pain. He reports it only being a 1/10 in severity today upon exam. Patient reports being able to lay back with no difficulties with breathing. He denies any fevers, chills, nausea, vomiting, changes in vision, syncopal episodes, or any other complaints. Objective - Vital Signs/Intake and Output Vital Signs (last 24 hours): Temp Pulse Resp BP Pulse Ox 97.6 F 93 H 18 111/67 96 01/01/18 08:05 01/01/18 08:05 01/01/18 08:05 01/01/18 08:05 01/01/18 08:05 Intake and Output: 01/01/18 01/01/18 06:59 18:59 Output Total 600 Balance -600 - Medications Medications: Current Medications Aspirin (Aspirin) 325 mg PO Q6 [facility] Last Admin: 01/01/18 12:51 Dose: 325 mg Heparin Sodium (Porcine) (Heparin) 5,000 units SC Q8 ANA LUISA Last Admin: 01/01/18 14:19 Dose: Not Given Ceftriaxone Sodium 1 gm/ (Sodium Chloride) 100 mls @ 100 mls/hr IVPB DAILY ANA LUISA PRN Reason: Protocol Last Admin: 01/01/18 10:01 Dose: 100 mls/hr Azithromycin 500 mg/ Sodium (Chloride) 250 mls @ 167 mls/hr IVPB Q24H ANA LUISA PRN Reason: Protocol Last Admin: 01/01/18 12:55 Dose: 167 mls/hr Methylprednisolone (Solu-Medrol) 40 mg IV Q6 ANA LUISA Last Admin: 01/01/18 12:51 Dose: 40 mg Ztbbc-9-[id number] Ethyl Esters (Lovaza) 1 gm PO BID [facility] Last Admin: 01/01/18 10:02 Dose: 1 gm Ondansetron HCl (Zofran Inj) 4 mg IVP Q6H PRN PRN Reason: Nausea/Vomiting Pantoprazole Sodium (Protonix Ec Tab) 20 mg PO DAILY [facility] Last Admin: 01/01/18 10:02 Dose: 20 mg Pneumococcal Polyvalent Vaccine (Pneumovax 23 Vaccine) 0.5 ml IM .ONCE ONE Stop: 01/02/18 10:01 Saccharomyces Boulardii (Florastor) 250 mg PO Q12 ANA LUISA Last Admin: 01/01/18 10:02 Dose: 250 mg - Labs Labs: 01/01/18 08:07 01/01/18 08:07 PT 15.4 SECONDS (9.7-12.2) H 12/29/17 18:40 INR 1.4 12/29/17 18:40 APTT 29 SECONDS (21-34) 12/29/17 18:40 - Head Exam Head Exam: ATRAUMATIC, NORMAL INSPECTION, NORMOCEPHALIC - Eye Exam Eye Exam: EOMI, Normal appearance, PERRL Pupil Exam: NORMAL ACCOMODATION - ENT Exam ENT Exam: Mucous Membranes Moist, Normal Oropharynx - Respiratory Exam Respiratory Exam: Clear to Ausculation Bilateral, NORMAL BREATHING PATTERN. absent: Respiratory Distress - Cardiovascular Exam Cardiovascular Exam: REGULAR RHYTHM, +S1, +S2 - GI/Abdominal Exam GI & Abdominal Exam: Soft, Normal Bowel Sounds - Extremities Exam Extremities Exam: Full ROM, Normal Inspection. absent: Pedal Edema - Back Exam Back Exam: NORMAL INSPECTION. absent: CVA tenderness (L), CVA tenderness (R), paraspinal tenderness - Neurological Exam Neurological Exam: Alert, Awake, CN II-XII Intact, Oriented x3 - Psychiatric Exam Psychiatric exam: Normal Affect, Normal Mood - Skin Skin Exam: Dry, Intact Assessment and Plan - Assessment and Plan (Free Text) Assessment: 32 yr male with PMhx of pericarditis and travel to [place] (2013) presents to ED w / chest pain (positional) and difficulty breathing: Plan: Pericarditis - Possibly Restrictive - Echo (12/30) :Normal left atrium, left ventricle, right atrium, right ventricle :EF 50-55% :Mild mitral regurgitation, tricuspid regurgitation :small posterior pericardial effusion :large left pleural effusion - CT (12/29): No evidence of pulmonary embolism. Small pericardial effusion. Small bilateral pleural effusion with lower lobe compressive atelectasis. - CXR (12/29): Small pleural effusions. Bibasilar airspace disease may represent atelectasis or pneumonia. - EKG: Sinus tachycardia, possible left atrial enlargement, nonspecific T wave abnormality, abnormal ECG - Chest decubitis bilateral xray:moderate bilateral pleural effusions. - F/u MRI of Chest : Hospital currently doesn't have appropriate software for MRI. Will f/u with further reccomendations. - continue Aspirin 325mg Q6 -Pulmonary recs - Dr. Balbuena :Consider repeat NICK, urine drug screen, HIV, Lyme titers, Quantiferon Gold test, small pleural effusion not amenable to thoracentesis :Consider pleural or pericardial biopsy :Short course of steroid - Cardio recs - Dr. Ho :Trivial pericardial effusion. May stop colchicine :Bilateral pleural effusions, atelectasis, FUO. Recommend ID and Pulmonary Eval. - ESR, CRP elevated, BNP 430, ROMIx (-) X3 -Methylprednisone 40mg IV Q6 Bilateral Lower Lobe Pleural Effusions Questionable patchy infiltrates? - CXR: Noted bilateral infiltrates, bilateral effusion - Elevated D- dimer, CTA - negative for PE; noted for mild bilateral pleural effusions, with atelectasis/ infiltrates? Few prominent mediastinal lymph nodes largest 1 x 2.2cm. Biapical pleural thickening/ scarring. No significant pericardial effusions. -H. influenzae Type B Ag: Negative -Urine Legionella pneumonphilia Ag: Negative -Mycoplasma pneumoniae IgM: Negative -N. meningitdis: Negative -Group B strep antigen: Negative -S.pneumoniae antigen: Negative -Azithromycin IV 500MG Q12 -Rocephin 1gm IV Daily -Sarccharomyces 250mg PO Q12 Transaminitis - Likely 2/2 to tylenol use - Refrain from hepatoxic agents - Will continue to monitor - hep A, B,C negative Prophylactic Measures - GI PPX: Protonix, Florastor - DVT PPX: SCDs, Heparin Q8H Discussed plan with Dr. Edwards . Dispo: Will follow up with Pulmonary for rec's steroid recommendations and MRI imaging study. Ruiz Rubin, PGY-2
[2018-01-01 16:20] VITALS: RESP 20
[2018-01-02] MEDS: MethylPREDNISolone 40 mg Vial IV SCH ×2 (05:58→13:09)
[2018-01-02 06:24] LABS: BASO % 0.2 % (0.0-2.0); HEMOGLOBIN 12.2 g/dL (12.0-18.0); LYMPH # 1.1 K/uL (1.0-4.3); LYMPH % 6.7 % (20.0-40.0); MEAN CELL VOLUME 88.7 fL (80.0-94.0); MEAN CORPUSCULAR HEMOGLOBIN 29.3 pg (27.0-31.0); MEAN PLATELET VOLUME 9.4 fL (7.2-11.7); MONO # 0.5 K/uL (0.0-0.8); MONO % 3.2 % (0.0-10.0); NEUT # 14.4 K/uL (1.8-7.0); NEUT % 89.9 % (50.0-75.0); NRBC % 0.1 % (0.0-2.0); PLATELET COUNT 378 K/uL (130-400); RBC 4.16 Mil/uL (4.40-5.90); RED CELL DISTRIBUTION WIDTH 14.1 % (11.5-14.5); WHITE BLOOD COUNT 16.1 K/uL (4.8-10.8)
[2018-01-02 06:44] LABS: ALB/GLOB RATIO 1.1 (1.0-2.1); ALBUMIN 3.8 g/dL (3.5-5.0); ALT/SGPT 122 U/L (21-72); AST/SGOT 64 U/L (17-59); BLOOD UREA NITROGEN 19 mg/dL (9-20); CALCIUM 9.2 mg/dl (8.6-10.4); GFR AFRICAN-AMERICAN > 60; GFR NON-AFRICAN AMERICAN > 60
[2018-01-02 07:42] VITALS: BP 116/74; TEMP 98; O2SAT 95
--- NOTE | 2018-01-02 08:21 | CP.PCM.PN ---
Objective - Vital Signs/Intake and Output Vital Signs (last 24 hours): Temp Pulse Resp BP Pulse Ox 98.0 F 100 H 20 116/74 95 01/02/18 07:00 01/02/18 07:00 01/02/18 07:00 01/02/18 07:00 01/02/18 07:00 - Medications Medications: Current Medications Aspirin (Aspirin) 325 mg PO Q6 [facility] Last Admin: 01/02/18 05:58 Dose: 325 mg Ceftriaxone Sodium 1 gm/ (Sodium Chloride) 100 mls @ 100 mls/hr IVPB DAILY [facility] PRN Reason: Protocol Last Admin: 01/01/18 10:01 Dose: 100 mls/hr Azithromycin 500 mg/ Sodium (Chloride) 250 mls @ 167 mls/hr IVPB Q24H ANA LUISA PRN Reason: Protocol Last Admin: 01/01/18 12:55 Dose: 167 mls/hr Methylprednisolone (Solu-Medrol) 40 mg IV Q6 [facility] Last Admin: 01/02/18 05:58 Dose: 40 mg Vwgsq-9-Mgpc Ethyl Esters (Lovaza) 1 gm PO BID [facility] Last Admin: 01/01/18 17:24 Dose: 1 gm Ondansetron HCl (Zofran Inj) 4 mg IVP Q6H PRN PRN Reason: Nausea/Vomiting Pantoprazole Sodium (Protonix Ec Tab) 20 mg PO DAILY [facility] Last Admin: 01/01/18 10:02 Dose: 20 mg Pneumococcal Polyvalent Vaccine (Pneumovax 23 Vaccine) 0.5 ml IM .ONCE ONE Stop: 01/02/18 10:01 Saccharomyces Boulardii (Florastor) 250 mg PO Q12 [facility] Last Admin: 01/01/18 21:35 Dose: 250 mg - Labs Labs: 01/02/18 06:08 01/02/18 06:08 PT 15.4 SECONDS (9.7-12.2) H 12/29/17 18:40 INR 1.4 12/29/17 18:40 APTT 29 SECONDS (21-34) 12/29/17 18:40
[2018-01-02 08:42] LABS: BANDS 4 % (0-2); LYMPHOCYTE 7 % (20-40); MONOCYTE 2 % (0-10); NEUTROPHIL 87 % (50-75); PLATELET ESTIMATE NORMAL (NORMAL); TOTAL CELLS COUNTED 100
[2018-01-02 09:02] VITALS: PULSE 96
[2018-01-02] MEDS ORDERED: Pneumococcal 23-Valent Vaccine IM ONE (10:00)
[2018-01-02] MEDS: Pantoprazole 20 mg EC Tab PO SCH (10:17)
[2018-01-02] MEDS: Omega-3-Acid Ethyl Esters 1 GM Cap PO SCH (10:17)
[2018-01-02] MEDS: Saccharomyces Boulardi 250 mg Cap PO SCH (10:17)
[2018-01-02] MEDS: Azithromycin 500 MG in Sodium Chloride 0.9% 250 ML IVPB SCH (13:14)
--- NOTE | 2018-01-02 13:39 | CP.PCM.DIS ---
Provider - Provider Date of Admission: 12/29/17 22:34 Attending physician: Adonis Edwards Jr, MD Time Spent in preparation of Discharge (in minutes): 45 Hospital Course - Lab Results Lab Results: Micro Results 12/29/17 22:44 Blood Blood Culture - Preliminary NO GROWTH AFTER 3 DAYS 12/29/17 22:44 Blood Blood Culture - Preliminary NO GROWTH AFTER 3 DAYS Most Recent Lab Values WBC 16.1 K/uL (4.8-10.8) H 01/02/18 06:08 RBC 4.16 Mil/uL (4.40-5.90) L 01/02/18 06:08 Hgb 12.2 g/dL (12.0-18.0) 01/02/18 06:08 Hct 36.9 % (35.0-51.0) 01/02/18 06:08 MCV 88.7 fL (80.0-94.0) 01/02/18 06:08 MCH 29.3 pg (27.0-31.0) 01/02/18 06:08 MCHC 33.0 g/dL (33.0-37.0) 01/02/18 06:08 RDW 14.1 % (11.5-14.5) 01/02/18 06:08 Plt Count 378 K/uL (130-400) 01/02/18 06:08 MPV 9.4 fL (7.2-11.7) 01/02/18 06:08 Neut % (Auto) 89.9 % (50.0-75.0) H 01/02/18 06:08 Lymph % (Auto) 6.7 % (20.0-40.0) L 01/02/18 06:08 Drew % (Auto) 3.2 % (0.0-10.0) 01/02/18 06:08 Eos % (Auto) 0.0 % (0.0-4.0) 01/02/18 06:08 Baso % (Auto) 0.2 % (0.0-2.0) 01/02/18 06:08 Neut # (Auto) 14.4 K/uL (1.8-7.0) H 01/02/18 06:08 Lymph # (Auto) 1.1 K/uL (1.0-4.3) 01/02/18 06:08 Drew # (Auto) 0.5 K/uL (0.0-0.8) 01/02/18 06:08 Eos # (Auto) 0.0 K/uL (0.0-0.7) 01/02/18 06:08 Baso # (Auto) 0.0 K/uL (0.0-0.2) 01/02/18 06:08 Neutrophils % (Manual) 87 % (50-75) H 01/02/18 06:08 Band Neutrophils % 4 % (0-2) H 01/02/18 06:08 Lymphocytes % (Manual) 7 % (20-40) L 01/02/18 06:08 Monocytes % (Manual) 2 % (0-10) 01/02/18 06:08 Platelet Estimate Normal (NORMAL) 01/02/18 06:08 RBC Morphology Normal 01/01/18 08:07 ESR 72 mm/hr (0-15) H 12/29/17 23:11 PT 15.4 SECONDS (9.7-12.2) H 12/29/17 18:40 INR 1.4 12/29/17 18:40 APTT 29 SECONDS (21-34) 12/29/17 18:40 D-Dimer, Quantitative 1859 ng/mlDDU (0-243) H 12/29/17 19:50 Sodium 144 mmol/L (132-148) 01/02/18 06:08 Potassium 4.6 mmol/L (3.6-5.2) 01/02/18 06:08 Chloride 104 mmol/L (98-107) 01/02/18 06:08 Carbon Dioxide 28 mmol/L (22-30) 01/02/18 06:08 Anion Gap 16 (10-20) 01/02/18 06:08 BUN 19 mg/dL (9-20) 01/02/18 06:08 Creatinine 0.7 mg/dL (0.8-1.5) L 01/02/18 06:08 Est GFR ( Amer) > 60 01/02/18 06:08 Est GFR (Non-Af Amer) > 60 01/02/18 06:08 Random Glucose 140 mg/dL (75-110) H 01/02/18 06:08 Hemoglobin A1c 5.5 % (4.2-6.5) 12/29/17 23:11 Calcium 9.2 mg/dl (8.6-10.4) 01/02/18 06:08 Phosphorus 4.8 mg/dL (2.5-4.5) H 01/02/18 06:08 Magnesium 2.2 mg/dL (1.6-2.3) 01/02/18 06:08 Total Bilirubin 0.3 mg/dL (0.2-1.3) 01/02/18 06:08 AST 64 U/L (17-59) H 01/02/18 06:08 ALT 122 U/L (21-72) H 01/02/18 06:08 Alkaline Phosphatase 119 U/L (38-126) 01/02/18 06:08 Total Creatine Kinase 53 U/L (55-170) L 12/30/17 11:37 CK-MB (Mass) 0.26 ng/mL (0.0-3.38) 12/30/17 11:37 Troponin I < 0.0120 ng/mL (0.00-0.120) 12/30/17 11:37 C-React Prot High Sens > 15.00 mg/L (1.00-3.00) H 12/29/17 23:11 NT-Pro-B Natriuret Pep 430 pg/mL (0-450) 12/29/17 18:40 Total Protein 7.2 g/dL (6.3-8.3) 01/02/18 06:08 Albumin 3.8 g/dL (3.5-5.0) 01/02/18 06:08 Globulin 3.4 gm/dL (2.2-3.9) 01/02/18 06:08 Albumin/Globulin Ratio 1.1 (1.0-2.1) 01/02/18 06:08 Triglycerides 103 mg/dL (0-149) 12/30/17 00:11 Cholesterol 113 mg/dL (0-199) 12/30/17 00:11 LDL Cholesterol Direct 50 mg/dL (0-129) 12/30/17 00:11 HDL Cholesterol 20 mg/dL (30-70) L 12/30/17 00:11 Procalcitonin 0.19 NG/ML (0.19-0.49) 12/29/17 23:45 Free T4 1.99 ng/dL (0.78-2.19) 12/29/17 23:11 TSH 3rd Generation 1.57 mIU/L (0.46-4.68) 12/30/17 00:11 Urine Color Straw (YELLOW) 12/29/17 19:33 Urine Clarity Clear (Clear) 12/29/17 19:33 Urine pH 6.0 (5.0-8.0) 12/29/17 19:33 Ur Specific [place] 1.005 (1.003-1.030) 12/29/17 19:33 Urine Protein Negative mg/dL (NEGATIVE) 12/29/17 19:33 Urine Glucose (UA) Normal mg/dL (Normal) 12/29/17 19:33 Urine Ketones Negative mg/dL (NEGATIVE) 12/29/17 19:33 Urine Blood 1+ (NEGATIVE) H 12/29/17 19:33 Urine Nitrate Negative (NEGATIVE) 12/29/17 19:33 Urine Bilirubin Negative (NEGATIVE) 12/29/17 19:33 Urine Urobilinogen Normal mg/dL (0.2-1.0) 12/29/17 19:33 Ur Leukocyte Esterase Neg Sean/uL (Negative) 12/29/17 19:33 Urine WBC (Auto) < 1 /hpf (0-5) 12/29/17 19:33 Urine RBC (Auto) 2 /hpf (0-3) 12/29/17 19:33 Urine Opiates Screen Negative (NEGATIVE) 12/31/17 19:23 Urine Methadone Screen Negative (NEGATIVE) 12/31/17 19:23 Ur Barbiturates Screen Negative (NEGATIVE) 12/31/17 19:23 Ur Phencyclidine Scrn Negative (NEGATIVE) 12/31/17 19:23 Ur Amphetamines Screen Negative (NEGATIVE) 12/31/17 19:23 U Benzodiazepines Scrn Negative (NEGATIVE) 12/31/17 19:23 U Oth Cocaine Metabols Negative (NEGATIVE) 12/31/17 19:23 U Cannabinoids Screen Negative (NEGATIVE) 12/31/17 19:23 Rheumatoid Arth Interp Negative (NEGATIVE) 12/30/17 11:43 Hepatitis A IgM Ab Negative (NEGATIVE) 12/29/17 23:11 Hep Bs Antigen Negative (NEGATIVE) 12/29/17 23:11 Hep B Core IgM Ab Negative (NEGATIVE) 12/29/17 23:11 Hepatitis C Antibody Negative (NEGATIVE) 12/29/17 23:11 H.influenzae Type B Ag Negative (NEGATIVE) 12/31/17 01:16 Ur L.pneumophila Ag Negative (NEGATIVE) 12/31/17 01:16 Mycoplasma pneumon IgM Negative (NEGATIVE) 12/31/17 01:16 N.meningitidis ACY/W135 Negative (NEGATIVE) 12/31/17 01:16 N.meningi B/E.coli K1 Ag Negative (NEGATIVE) 12/31/17 01:16 Group B Strep Antigen Negative (NEGATIVE) 12/31/17 01:16 S. pneumoniae Antigen Negative (NEGATIVE) 12/31/17 01:16 TB Test (QFT) Nil 0.05 IU/mL 12/30/17 11:43 TB Test Mitogen - Nil 7.59 IU/mL 12/30/17 11:43 TB Test TB - Nil 0.02 IU/mL 12/30/17 11:43 TB Test (QFT) Negative (Negative) 12/30/17 11:43 - Hospital Course Hospital Course: PMHx: Pericarditis PSHx: Denied Meds: Aleve, Colchine, and Protonix All: NKDA SHx: Denied any tobacco or illicit drug use, drinks 1-2 beers every couple of months FHx: Denied any history of cardiac issues, CVAs, or malignancies Cardio: Dr. Ho Upon admission: This is a 32 year old male who was recently diagnosed with Pericarditis 4 weeks ago. Patient reports that 4 weeks ago he started to have daily fevers with Tmax 103F, chest pain, tightness, pressure that was intermittent, worse with inspiration and was positional, worse when laying down flat, better if upright and leaned forward. He followed up with his PMD and he referred him to see Dr. Ho. Patient had workup done with Dr. Ho who diagnosed him with Pericarditis; started him on daily NSAIDs and Colchine. Patient was also seen by Dr. Hernandez, patient reports all studies were negative. Denied any recent travelling or sick contacts. Admitted to having Scarlet Fever as a child, up to date with all immunizations. Patient reports he was compliant with his medications, taking them daily as instructed. Patient reports 2 days ago he started to have fevers, Tmax 102F, associated with chills, nonproductive cough, nausea, and chest pain with deep inspiration. Patient saw Dr. Ho who instructed the patient come to the ED. Denied shortness of breath, abdominal pain, v/d/c, or urinary symptoms. Hospital Course: Patient came to ED s/p diagnosis of pericarditis [address] Ho. Cardiology and ID was consulted. CT of chest and CXRs were done with resulted listed above. Was treated with Motrin q8h and colchicine. Pain was not relieved so motrin was discontinued and aspirini 325mg q6 was started. AURA (-) x 3 with elevated ESR and CRP, BNP 430. Started on Rocephin, Azithro with for atypical cultures ordered. Pulmonology team recommended starting low dose steroid with solumedrol 40mg IV. Patient symptoms alleviated and was discharged to followup for further blood work and imagine to definte etiology of recurrent pericarditis. Imagin12/29/2017 CXR : Noted bilateral infiltrates, bilateral effusion 12/29/[address] : negative for PE; noted for mild bilateral pleural effusions , with atelectasis/ infiltrates? Few prominent mediastinal lymph nodes largest 1 x 2.2cm. Biapical pleural thickening/ scarring. No significant pericardial effusions. 12/30/2017 CXR: Moderate bilateral pleural effusions Discharge Instructions: Patient is stable for discharge home as per Dr. Edwards. Patient is being discharge with the following medications: Medrol dose pack. Take tablet daily as per dose pack instructions. Patient is to resume colchicine and Ibuprofen. Patient is to follow up with Dr. Jacobo within next week following discharge. Patient is to followup with PMD within next week following discharge. Patient is to return if symptoms recur or worsen. This was explained to patient who understands and agrees. Discharge Exam - Head Exam Head Exam: ATRAUMATIC, NORMAL INSPECTION, NORMOCEPHALIC Discharge Plan - Discharge Medications Prescriptions: Methylprednisolone [Medrol Dose Pack (21 tabs)] 4 mg PO DAILY #21 mg - Follow Up Plan Condition: FAIR Disposition: HOME/ ROUTINE Instructions: Heart Healthy Diet, Pneumonia, Adult (DC), Pleural Effusion (DC) , Methylprednisolone Additional Instructions: Patient is stable for discharge home as per Dr. Edwards. Patient is being discharge with the following medications: Medrol dose pack. Take tablet daily as per dose pack instructions. Patient is to resume colchicine and Ibuprofen. Patient is to follow up with Dr. Jacobo within next week following discharge. Patient is to followup with PMD within next week following discharge. Patient is to return if symptoms recur or worsen. This was explained to patient who understands and agrees. Referrals: Vivek Ho MD [Staff Provider] -
--- NOTE | 2018-01-02 13:50 | CP.PCM.PN ---
Subjective - Date & Time of Evaluation Date of Evaluation: 01/02/18 Time of Evaluation: 09:45 - Subjective Subjective: Patient seen and examined Patient states he started feeling better after he was started on steroids Afebrile No chest pain Denies any cough Objective - Vital Signs/Intake and Output Vital Signs (last 24 hours): Temp Pulse Resp BP Pulse Ox 98.0 F 96 H 20 116/74 95 01/02/18 07:00 01/02/18 07:40 01/02/18 07:00 01/02/18 07:00 01/02/18 07:00 - Medications Medications: Current Medications Aspirin (Aspirin) 325 mg PO Q6 [facility] Last Admin: 01/02/18 13:10 Dose: 325 mg Ceftriaxone Sodium 1 gm/ (Sodium Chloride) 100 mls @ 100 mls/hr IVPB DAILY ANA LUISA PRN Reason: Protocol Last Admin: 01/02/18 10:17 Dose: 100 mls/hr Azithromycin 500 mg/ Sodium (Chloride) 250 mls @ 167 mls/hr IVPB Q24H ANA LUISA PRN Reason: Protocol Last Admin: 01/02/18 13:14 Dose: 167 mls/hr Methylprednisolone (Solu-Medrol) 40 mg IV Q6 ANA LUISA Last Admin: 01/02/18 13:09 Dose: 40 mg Imcoq-6-Hcpe Ethyl Esters (Lovaza) 1 gm PO BID [facility] Last Admin: 01/02/18 10:17 Dose: 1 gm Ondansetron HCl (Zofran Inj) 4 mg IVP Q6H PRN PRN Reason: Nausea/Vomiting Pantoprazole Sodium (Protonix Ec Tab) 20 mg PO DAILY [facility] Last Admin: 01/02/18 10:17 Dose: 20 mg Saccharomyces Boulardii (Florastor) 250 mg PO Q12 ANA LUISA Last Admin: 01/02/18 10:17 Dose: 250 mg - Labs Labs: 01/02/18 06:08 01/02/18 06:08 PT 15.4 SECONDS (9.7-12.2) H 12/29/17 18:40 INR 1.4 12/29/17 18:40 APTT 29 SECONDS (21-34) 12/29/17 18:40 - Head Exam Head Exam: ATRAUMATIC, NORMOCEPHALIC - ENT Exam ENT Exam: Mucous Membranes Moist - Neck Exam Neck Exam: Normal Inspection - Respiratory Exam Respiratory Exam: Clear to Ausculation Bilateral - Cardiovascular Exam Cardiovascular Exam: REGULAR RHYTHM - GI/Abdominal Exam GI & Abdominal Exam: Soft, Normal Bowel Sounds - Extremities Exam Extremities Exam: Normal Inspection - Neurological Exam Neurological Exam: Alert, Oriented x3 Assessment and Plan (1) Pleural effusion Assessment & Plan: pleuropericardial effusion of unknown etiology Elevated LFTs rule out secondary to azithromycin Check CPK to r/o RPM, angiotensin-converting enzyme inhibitor to rule out sarcoidosis which can cause pleuropericardial effusion, and thyroid function test NICK pending Continue steroids Status: Acute (2) Pericarditis Status: Acute
[2018-01-02 15:39] LABS: T4 8.32 ug/dL (5.5-11.0)
[2018-01-02 15:56] LABS: T3 1.25 nmol/L (1.49-2.60)
== END 2018-01-02 16:37 | disposition home or self-care (01) | DRG 85 ==
LOC: C.ER 17:36 → C.9E 22:34 → C.6T 23:09
PROVIDERS: ADMIT Internal Medicine; ATTEND Internal Medicine
DX: J90 Pleural effusion, not elsewhere classified (principal); J98.11 Atelectasis; I31.3 Pericardial effusion (noninflammatory)